=== PATIENT | male | born 1970 | race Two or more races ===

== ENCOUNTER → 2019-05-29 | Outpatient (CLI) | payer OTHER ==
[~2019-05-29] MED LIST: IOHEXOL 300 MG/ML 100ML BOTTLE IJ ONE; OMNIPAQUE ORAL SOLN 500ml 12mg/ml PO ONE
[2019-05-29 11:20] LABS: BUN/Creatinine Ratio 13.3; Calcium 8.7 mg/dL (8.5-10.1); Potassium 4.1 mmol/L (3.5-5.1)
== END | disposition home or self-care (01) ==
LOC: EDSEX 10:01 → CT 10:01
DX: K44.9 Diaphragmatic hernia without obstruction or gangrene (principal)
CPT/HCPCS: 36415; 74177; 80048; Q9967

== ENCOUNTER 2019-06-24 06:00 | Inpatient (IN) | payer OTHER ==
[2019-06-24] VITALS (14 sets, daily range): BP systolic 96–118; BP diastolic 58–68
[~2019-06-24] VITALS: Ht 157.5 cm; Wt 81.1 kg
[2019-06-24] MEDS ORDERED: MIDAZOLAM HCL 5 MG/ML-1ML VIAL ONE (08:40)
[2019-06-24] MEDS ORDERED: LIDOCAINE VISCOUS 2% 15ML UD ONE (08:40)
[2019-06-24] MEDS ORDERED: SODIUM CHLORIDE LOCK 10 ML ONE (08:40)
[2019-06-24] MEDS ORDERED: fentaNYL CITRATE 100 MCG/2 ML VL ONE (08:40)
[2019-06-24] MEDS ORDERED: diphenhdrAMINE HCL 50 MG/1 ML VL ONE (08:41)
[2019-06-24 09:42] LABS: Hematocrit 21.9 % (41.0-53.0)
[2019-06-24 09:44] LABS: Mean Corpuscular Hgb Conc. 28.2 g/dL (32.0-36.0); Mean Corpuscular Volume 53.2 fL (80.0-100.0); Platelet Count (auto) 219 10^3/uL (140-450); Red Blood Cells 4.12 10^6/uL (4.5-5.90); White Blood Cell 3.8 10^3/uL (4.4-10.8)
[2019-06-24 09:48] LABS: Red Cell Distribution Width 21.3 % (11.8-14.3)
[2019-06-24 09:54] LABS: Hemoglobin 6.2 g/dL (13.5-17.5)
[2019-06-24 09:58] LABS: INR 1.08 (0.9-1.15); Partial Thromboplastin Time 24.8 sec (23.64-32.05)
[2019-06-24 10:23] LABS: Band Neutrophils % (manual) 0; Basophils % (manual) 0 (0.0-2.0); Blast Cells 0; Metamyelocytes % 0; Myelocytes % 0; Promyelocytes % 0; Reactive Lymphocytes 0
[2019-06-24 10:25] LABS: Eosinophils % (manual) 2 (0-7); Lymphocytes % (manual) 38 (10.0-50.0); Monocytes % (manual) 8 (0-12)
[2019-06-24] MEDS ORDERED: NITROGLYCERIN 0.4 MG SL TAB SL PRN (10:30)
[2019-06-24] MEDS ORDERED: MORPHINE SULF INJ 2 MG/ML SYRINGE 1ML IV PRN (10:30)
[2019-06-24 11:15] LABS: Hematocrit 22.3 % (41.0-53.0)
--- NOTE | 2019-06-24 11:18 | NUR ---
RECEIVED REPORT FROM REZA OCAMPO IN PRE-OP SCHEDULED EGD AND COLONOSCOPY WAS CANCELLED DUE TO HGB 6.2, PT WILL BE RE SCHEDULED TOMORROW.
[2019-06-24 11:23] LABS: % Iron Saturation 2.1 % (20-55); Albumin 3.5 g/dL (3.4-5.0); Calcium 8.2 mg/dL (8.5-10.1); Potassium 3.7 mmol/L (3.5-5.1)
[2019-06-24 11:24] LABS: Hemoglobin 6.3 g/dL (13.5-17.5)
[2019-06-24 11:28] LABS: BUN/Creatinine Ratio 11.7; Bilirubin, Total 0.8 mg/dL (0.2-1.0)
--- NOTE | 2019-06-24 11:30 | NUR ---
MS admit from ER SAMY,ALEXANDER LEA admitted to tele/MS after SBAR received. Patient oriented to Elma Claire, primary RN, unit, room, bed, and unit policies regarding patient care and visiting hours. Patient weighed by bedscale and encouraged to call if they need something. All questions and concerns addressed, patient verbalized understanding. Note: PT IS AWAKE AND ALERT, NO SIGNS OF DISTRESS AT THIS TIME, WILL CONTINUE TO MONITOR.
[2019-06-24 11:31] LABS: Folate (Folic Acid) 19.24 ng/mL (5.38-24)
[2019-06-24 13:30] LABS: Hepatitis A Ab IgM Negative; Hepatitis B Core IgM Negative
[2019-06-24 13:31] LABS: Hepatitis B Surface Antigen Negative (Negative); Hepatitis C Antibody Negative (Negative)
--- NOTE | 2019-06-24 14:18 | NUR ---
BLOOD TRANSFUSION STARTED UNIT#1
--- NOTE | 2019-06-24 16:39 | NUR ---
BLOOD TRANSFUSION STARTED UNIT#2
--- NOTE | 2019-06-24 17:28 | NUR ---
URINE SAMPLE SENT TO LAB
[2019-06-24 17:38] LABS: Urine WBC None Seen /hpf (0 - 3)
[2019-06-24 17:56] LABS: Urine Bacteria NONE SEEN /hpf (None Seen); Urine Blood Negative /uL (Negative); Urine Mucus FEW (None Seen); Urine Specific Gravity 1.016 (1.001-1.035)
--- NOTE | 2019-06-24 19:09 | NUR ---
CARE ENDORSED TO REZA MADDOX PT STILL WITH ONGOING 2ND UNIT OF BLOOD TRANSFUSION.
--- NOTE | 2019-06-24 20:00 | NUR ---
open note assumed care of pt. upon entering room pt awake, alert and oriented. pt on room air no distress noted or expressed. pt bed locked, low and 2x rails up. pt denies any pain at this time. pt has 1 unit prbc that has just completed. vitals noted in transfusion activity. pt tolerated without issue. pt updated on plan of care, pt aware of procedure in the AM EGD with colonoscopy and NPO status after midnight. pt has no additional questions at this time. call light in reach, guards at bedside, encouraged to call as needed. this nurse will round q1hr and prn.
[2019-06-24] MEDS: PANTOPRAZOLE 40 MG/10 ML VIAL INJ IV SCH (22:02)
[2019-06-25 05:15] VITALS: BP 103/63
[2019-06-25 06:02] LABS: Basophils # (auto) 0.1 uL; Eosinophils # (auto) 0.1 uL; Lymphocytes # (auto) 1.7 uL; Monocytes # (auto) 0.4 uL; Neutrophils # (auto) 2.5 uL; White Blood Cell 4.8 10^3/uL (4.4-10.8)
[2019-06-25 06:03] LABS: Basophils % (auto) 1.6 % (0.0-2.0); Eosinophils % (auto) 2.4 % (0.0-7.0); Hematocrit 27.3 % (41.0-53.0); Hemoglobin 8.2 g/dL (13.5-17.5); Lymphocytes % (auto) 35.1 % (10.0-50.0); Mean Corpuscular Hemoglobin 17.7 pg (28.0-32.0); Mean Corpuscular Hgb Conc. 30.2 g/dL (32.0-36.0); Mean Corpuscular Volume 58.6 fL (80.0-100.0); Monocytes % (auto) 8.3 % (0.0-12.0); Neutrophils % (auto) 52.6 % (37.0-80.0); Nucleated Red Blood Cells % 0.3 %; Platelet Count (auto) 202 10^3/uL (140-450); Red Blood Cells 4.66 10^6/uL (4.5-5.90)
[2019-06-25 06:10] LABS: Red Cell Distribution Width 28.3 % (11.8-14.3)
[2019-06-25 08:00] VITALS: BP 121/70
[2019-06-25] MEDS ORDERED: PNEUMOCOCCAL VACC POLYS 25 MCG/0.5 ML VIAL IM ONE (08:45)
[2019-06-25] MEDS ORDERED: INFLUENZA QUAD 2019-2020 0.5ml SYRG IM ONE (08:45)
[2019-06-25] MEDS: PANTOPRAZOLE 40 MG/10 ML VIAL INJ IV SCH (08:55)
[2019-06-25 09:00] VITALS: BP 121/70
[2019-06-25] MEDS ORDERED: NALOXONE HCL 0.4 MG/ML VIAL ONE (09:39)
[2019-06-25] MEDS ORDERED: FLUMAZENIL 0.1 MG/ML INJ 10ML MDV IV ONE (09:39)
[2019-06-25] MEDS ORDERED: SODIUM CHLORIDE LOCK 10 ML ONE (09:39)
[2019-06-25] MEDS ORDERED: LIDOCAINE VISCOUS 2% 15ML UD ONE (09:40)
[2019-06-25] MEDS ORDERED: diphenhdrAMINE HCL 50 MG/1 ML VL ONE (09:40)
--- NOTE | 2019-06-25 11:33 | NUR ---
PT TRANSPORTED TO PRE-OP VIA BED, PT IS AWAKE AND ALERT, PRE-OP CHECKLIST COMPLETED, CONSENTS SIGNED, IV ON RIGHT WRIST PATENT AND FLUSHING.
[2019-06-25] MEDS: fentaNYL CITRATE 100 MCG/2 ML VL ONE ×2 (12:13→12:16)
[2019-06-25] MEDS: MIDAZOLAM HCL 5 MG/ML-1ML VIAL ONE ×2 (12:13→12:16)
[2019-06-25] MEDS ORDERED: MIDAZOLAM HCL 5 MG/ML-1ML VIAL ONE (12:22)
[2019-06-25] MEDS ORDERED: fentaNYL CITRATE 100 MCG/2 ML VL ONE (12:22)
[2019-06-25 13:00] VITALS: BP 121/69
--- NOTE | 2019-06-25 13:02 | NUR ---
RECEIVED REPORT FROM REZA SOLIS OF PACU, PT S/P EGD AND COLONOSCOPY.
--- NOTE | 2019-06-25 13:13 | NUR ---
RECEIVED PT FROM PACU VIA BED, PT IS AWAKE AND ALERT, NO SIGNS OF DISTRESS OR PAIN AT THIS TIME, WILL CONTINUE TO MONITOR.
[2019-06-25 17:00] VITALS: BP 134/73
--- NOTE | 2019-06-25 20:00 | NUR ---
Opening Shift Note Assumed care of patient, awake and alert. No S/S of distress/SOB or pain. Instructed on POC and to call for assist PRN. Bed in lowest locked position, call light within reach, side rails up x2. Will continue to monitor for changes Q1hr and PRN.
[2019-06-25 22:00] VITALS: BP 103/67
[2019-06-26 05:00] VITALS: BP 96/59
[2019-06-26 06:41] LABS: Basophils # (auto) 0.1 uL; Basophils % (auto) 1.6 % (0.0-2.0); Eosinophils # (auto) 0.2 uL; Eosinophils % (auto) 3.3 % (0.0-7.0); Hemoglobin 8.8 g/dL (13.5-17.5); Lymphocytes # (auto) 1.6 uL; Mean Corpuscular Hemoglobin 17.8 pg (28.0-32.0); Mean Corpuscular Hgb Conc. 30.4 g/dL (32.0-36.0); Mean Corpuscular Volume 58.6 fL (80.0-100.0); Monocytes # (auto) 0.4 uL; Neutrophils # (auto) 2.6 uL; Neutrophils % (auto) 53.1 % (37.0-80.0); Nucleated Red Blood Cells % 0.1 %; Platelet Count (auto) 222 10^3/uL (140-450); Red Blood Cells 4.95 10^6/uL (4.5-5.90); Red Cell Distribution Width 30.7 % (11.8-14.3); White Blood Cell 4.8 10^3/uL (4.4-10.8)
--- NOTE | 2019-06-26 07:30 | NUR ---
Opening Shift Note Assumed care of patient, awake and alert. No S/S of distress/SOB or pain. Instructed on POC and to call for assist PRN, will continue to monitor for changes Q1hr and PRN.
[2019-06-26 09:00] VITALS: BP 113/65
[2019-06-26] MEDS ORDERED: PANTOPRAZOLE 40 MG TAB PO SCH (10:00)
[2019-06-26 13:00] VITALS: BP 116/72
--- NOTE | 2019-06-26 13:30 | NUR ---
DR DURAN AT BEDSIDE.
[2019-06-26] MEDS ORDERED: FERR200T3 PO (13:36)
[2019-06-26] MEDS ORDERED: PANT40T PO (13:36)
[2019-06-26 15:51] VITALS: BP 116/72
--- NOTE | 2019-06-26 16:00 | NUR ---
Discharge instructions given as ordered. Encourage to follow up with PMD as instructed. All questions and concerns addressed. Patient verbalized understanding. Medication reconciliation form completed and copy given to patient. IV removed with catheter intact, pressure dressing applied. AWAITING FOR TRANSPORTATION. GUARDS AT BEDSIDE.
--- NOTE | 2019-06-26 17:00 | NUR ---
PAGEChester MAURICE RE: PT'S C/O BLOODY DIARRHEA. PER PT HE HAD TOLD THE DOCTOR ABOUT IT BUT WAS CONCERNED THAT HE IS GETTING DISCHARGED. WAITING FOR CALL BACK.
--- NOTE | 2019-06-26 17:50 | NUR ---
PatienT LEFT with all personal belongings, accompanied by GUARDS. No distress noted at time of departure.
--- NOTE | 2019-06-26 18:21 | NUR ---
RECEIVED A CALL BACK FROM DR DURAN INFORMED OF PT'S CONCERN AND THAT THE PT HAD ALREADY LEFT.
== END 2019-06-26 17:40 | DRG 379 ==
LOC: SUR 06:00 → EAST 11:29 → EEVIPCON 11:29
PROVIDERS: ADMIT Internal Medicine Gastroenterology; ATTEND Internal Medicine
PROC: 30233N1 Transfusion of Nonautologous Red Blood Cells into Peripheral Vein, Percutaneous Approach (ICD-10-PCS; principal; 2019-06-24)
PROC: 0DB68ZX Excision of Stomach, Via Natural or Artificial Opening Endoscopic, Diagnostic (ICD-10-PCS; 2019-06-25)
PROC: 0DJD8ZZ Inspection of Lower Intestinal Tract, Via Natural or Artificial Opening Endoscopic (ICD-10-PCS; 2019-06-25 12:12)
DX: K29.81 Duodenitis with bleeding (principal); F17.210 Nicotine dependence, cigarettes, uncomplicated; D64.9 Anemia, unspecified; Z83.3 Family history of diabetes mellitus
CPT/HCPCS: 36415; 80053; 80074; 81001; 82270; 82607; 82746; 82962; 83540; 83550; 85007; 85014; 85018; 85025; 85027; 85045; 85610; 85730; 86850; 86900; 86901; 86920; 87081; C9113; G0378; J2250